=== PATIENT | female | born 1950 | race Caucasian/White ===

== ENCOUNTER → 2018-12-23 | Outpatient (REF) | payer MEDICARE, OTHER ==
[2018-12-23 11:46] LABS: HEMATOCRIT 28.2 % (37.0-47.0); HEMOGLOBIN 9.1 g/dl (12.0-16.0); IMMATURE GRANULOCYTES 0.4 % (0.0-5.0); MEAN CELL VOLUME 104.4 fL CALC (80.0-100.0); MEAN CORPUSCULAR HGB 33.7 pG CALC (26.0-32.0); MEAN CORPUSCULAR HGB CONC 32.3 g/L CALC (32.0-36.0); NEUT# 2.98 thou/uL (2.00-7.15); RED BLOOD COUNT 2.7 mill/uL (4.20-5.60); RED CELL DISTRI WIDTH 19.2 % (11.5-15.5)
== END | disposition home or self-care (01) ==
LOC: LAB 11:30
DX: C80.1 Malignant (primary) neoplasm, unspecified (principal)

== ENCOUNTER → 2018-12-30 | Outpatient (REF) | payer MEDICARE, OTHER ==
[2018-12-30 10:38] LABS: HEMOGLOBIN 9.5 g/dl (12.0-16.0); IMMATURE GRANULOCYTES 0.2 % (0.0-5.0); MEAN CELL VOLUME 103.2 fL CALC (80.0-100.0); MEAN CORPUSCULAR HGB 33.8 pG CALC (26.0-32.0); MEAN CORPUSCULAR HGB CONC 32.8 g/L CALC (32.0-36.0); NEUT# 1.56 thou/uL (2.00-7.15); RED BLOOD COUNT 2.81 mill/uL (4.20-5.60); RED CELL DISTRI WIDTH 18.1 % (11.5-15.5)
== END | disposition home or self-care (01) ==
LOC: LAB 10:09
DX: C56.9 Malignant neoplasm of unspecified ovary (principal)

== ENCOUNTER → 2019-01-18 | Outpatient (REF) | payer MEDICARE, OTHER ==
[2019-01-18 11:21] LABS: HEMATOCRIT 27.6 % (37.0-47.0); HEMOGLOBIN 8.7 g/dl (12.0-16.0); IMMATURE GRANULOCYTES 0.7 % (0.0-5.0); MEAN CORPUSCULAR HGB 33.7 pG CALC (26.0-32.0); MEAN CORPUSCULAR HGB CONC 31.5 g/L CALC (32.0-36.0); NEUT# 2.22 thou/uL (2.00-7.15); RED BLOOD COUNT 2.58 mill/uL (4.20-5.60)
== END | disposition home or self-care (01) ==
LOC: LAB 10:44
DX: C56.9 Malignant neoplasm of unspecified ovary (principal)

== ENCOUNTER 2023-03-01 10:24 | Day surgery (SDC) | payer MEDICARE, OTHER ==
[~2023-03-01] VITALS: Ht 152.4 cm; Wt 72.6 kg
[~2023-03-01 10:24] MED LIST: CRESTOR20 MG PO; DILT-XR180 MG PO; DOFETILIDE500 MCG PO; ELIQUIS2.5 MG PO; LOSARTAN POTAS100 MG PO; METOPROL TAR100 MG PO; SPIRONOLACT25 MG PO
[2023-03-01] MEDS ORDERED: [UNRECOGNIZED DRUG - OTHER] PO (11:32)
[2023-03-01 15:02] VITALS: BP 125/63
== END 2023-03-01 14:55 | disposition home or self-care (01) ==
LOC: ENDO 10:24
PROVIDERS: ATTEND Internal Medicine Gastroenterology
PROC: 0DBM8ZX Excision of Descending Colon, Via Natural or Artificial Opening Endoscopic, Diagnostic (ICD-10-PCS; principal; 2023-03-01)
PROC: 0DB98ZX Excision of Duodenum, Via Natural or Artificial Opening Endoscopic, Diagnostic (ICD-10-PCS; 2023-03-01)
PROC: 0DB78ZX Excision of Stomach, Pylorus, Via Natural or Artificial Opening Endoscopic, Diagnostic (ICD-10-PCS; 2023-03-01)
PROC: 0DB48ZX Excision of Esophagogastric Junction, Via Natural or Artificial Opening Endoscopic, Diagnostic (ICD-10-PCS; 2023-03-01)
DX: K63.5 Polyp of colon (principal); K57.30 Diverticulosis of large intestine without perforation or abscess without bleeding; K64.8 Other hemorrhoids; Q43.9 Congenital malformation of intestine, unspecified; K29.50 Unspecified chronic gastritis without bleeding; K58.0 Irritable bowel syndrome with diarrhea; K21.9 Gastro-esophageal reflux disease without esophagitis